=== PATIENT | male | born 1965 | race Caucasian/White ===

== ENCOUNTER 2020-06-03 16:37 | Outpatient (CLI) | payer OTHER | END 2020-06-03 16:52 | disposition home or self-care (01) | LOC: RAD 16:37 | DX: M17.0 Bilateral primary osteoarthritis of knee (principal) ==

== ENCOUNTER 2020-07-02 13:44 | Outpatient (CLI) | payer OTHER | END 2020-07-02 14:05 | disposition home or self-care (01) | LOC: RAD 13:44 | PROVIDERS: ATTEND Orthopaedic Surgery Adult Reconstructive Orthopaedic Surgery | DX: Z00.00 Encounter for general adult medical examination without abnormal findings (principal); I11.9 Hypertensive heart disease without heart failure ==

== ENCOUNTER 2020-11-03 14:01 | Outpatient (CLI) | payer OTHER | END 2020-11-03 14:13 | disposition home or self-care (01) | LOC: RAD 14:01 | PROVIDERS: ATTEND Orthopaedic Surgery Adult Reconstructive Orthopaedic Surgery | DX: M76.51 Patellar tendinitis, right knee (principal); Z96.652 Presence of left artificial knee joint ==

== ENCOUNTER 2020-11-23 15:50 | Outpatient (CLI) | payer OTHER | END 2020-11-23 15:58 | disposition home or self-care (01) | LOC: RAD 15:50 | PROVIDERS: ATTEND Orthopaedic Surgery Adult Reconstructive Orthopaedic Surgery | DX: R07.89 Other chest pain (principal); I11.9 Hypertensive heart disease without heart failure ==